=== PATIENT | female | born 1960 | race Caucasian/White ===

== ENCOUNTER 2021-03-07 18:32 | Emergency (ER) | payer BC ==
--- NOTE | 2021-03-07 19:20 | EDM.PDOC ---
ED HPI GENERAL MEDICAL PROBLEM - General Stated Complaint: ANKLE INJURY Time Seen by Provider: 03/07/21 19:01 Source of Information: Reports: Patient History Limitations: Reports: No Limitations - History of Present Illness INITIAL COMMENTS - FREE TEXT/NARRATIVE: HISTORY AND PHYSICAL: History of present illness: Patient is a 60-year-old female who presents to the emergency room with complaints of left ankle pain. She states that she rolled her ankle approximately 1 week ago and since then has had increased pain, swelling and bruising. She states she was "here pressured into coming to get checked out". She has been ambulatory and able to bear weight. Denies any weakness, numbness, tingling, saddle paresthesia. Patient denies any fever, chills, headache, change in vision, syncope or near syncope. Denies any chest pain, back pain, shortness of breath or cough. Denies any GI or symptoms. Review of systems: As per history of present illness and below otherwise all systems reviewed and negative. Past medical history: As per history of present illness and as reviewed below otherwise noncontributory. Surgical history: As per history of present illness and as reviewed below otherwise noncontributory. Social history: See social history for further information Family history: As per history of present illness and as reviewed below otherwise noncontributory. Physical exam: General: Well developed and well nourished. Alert and orientated x 3. Nontoxic in appearance and in no acute distress. Vital signs are stable and have been reviewed by me. Nursing notes were reviewed. HEENT: Atraumatic, normocephalic, pupils equal and reactive bilaterally, negative for conjunctival pallor or scleral icterus, mucous membranes moist, trachea midline. No drooling or trismus noted. No meningeal signs. No hot potato voice noted. Lungs: Clear to auscultation bilaterally. Chest nontender. Normal work of breathing, no accessory muscles used. Heart: S1S2, regular rate and rhythm Skin: Healing bruising to the distal tib-fib and medial and lateral solar rim. Remaining skin is intact, warm, dry. No lesions or rashes noted. Hematologic: No petechiae or purpra. Mucosa appropriate color and normal nail bed color and refill. Extremities: Large body habitus with bilateral +2 nonpitting edema to distal extremity. Medial and lateral malleolus tenderness of the left ankle. She moves all extremities per self without difficulty or deficits, negative for cords or calf pain. Cap refill less than 2 seconds. Strong pedal and pretibial pulses. +CMS. Neurovascular unremarkable. Neuro: Awake, alert, oriented. Cranial nerves II through XII unremarkable. Cerebellum unremarkable. Motor and sensory unremarkable throughout. Exam nonfocal. Psychiatric: Mood and affect are appropriate. Normal thought process. Answering questions appropriately. Please note that the patient was seen and evaluated during the 2019 SARS-CoV-2 novel coronavirus pandemic period. Community viral transmission is ongoing at time of this encounter and the emergency department is operating under pandemic response procedures. Medical Decision Making: X-ray shows a subtle non-displaced oblique fracture of the medial malleolus. Soft tissue swelling at the lateral malleolus could indicate ligamentous injury as there is no definite fracture there. CAM Walker boot and crutches were provided so patient would be nonweightbearing. I have talked with the patient about today's findings, in addition to providing specific details for plan of care. Offered to prescribe pain medication, she declines, stating she would prefer [id number]. Reassessment at the time of disposition demonstrates that the patient is in no acute distress. The patient is stable for discharge, counseling was provided and we discussed in great detail signs and symptoms that would prompt them to return to the Emergency Department. Medication, follow up and supportive care measures were reviewed and discussed. Voices understanding and is agreeable to plan of care. Denies any further questions or concerns at this time. Diagnostics: Ankle Therapeutics: CAM Walker boot and crutches Prescription: Declines Impression: Left ankle fracture Plan: 1. You were evaluated today on an emergent basis. Your x-ray shows a subtle non-displaced oblique fracture of the medial malleolus. Rest, ice, elevate the extremity as able. Please be nonweightbearing and use the crutches until you follow-up with the orthopedic provider. 2. You can alternate Tylenol and ibuprofen as needed for pain and fever management. 3. Please call the orthopedic office on Wednesday to set up a follow-up appointment for re-evaluation and further care/management. 4. If your symptoms should worsen, new symptoms develop or any of the signs and symptoms we discussed should arise please return to the emergency room or call 911 (if needed). Definitive disposition and diagnosis as appropriate pending reevaluation and review of above. left ankle Pain Score (Numeric/FACES): 2 - Related Data Allergies Allergy/AdvReac Type Severity Reaction Status Date / Time No Known Allergies Allergy Verified 03/07/21 18:51 Home Meds: Home Meds . [No Known Home Meds] 03/07/21 [History] Past Medical History - Past Health History Medical/Surgical History: Denies Medical/Surgical History - Infectious Disease History Infectious Disease History: Reports: Chicken Pox, Measles, Mumps Review of Systems - Review of Systems Review Of Systems: Comprehensive ROS is negative, except as noted in HPI. ED EXAM, GENERAL - Physical Exam Exam: See Below (See dictation) Course - Vital Signs Last Recorded V/S: Last Vital Signs Temp 98.1 F 03/07/21 20:10 Pulse 82 03/07/21 20:10 Resp 20 03/07/21 20:10 BP 132/73 03/07/21 20:10 Pulse Ox 97 03/07/21 20:10 - Orders/Labs/Meds Orders: Active Orders 24 hr Category Date Time Status DME for Discharge [COMM] Stat Oth 03/07/21 19:49 Ordered Departure - Departure Time of Disposition: 20:45 Disposition: Home, Self-Care 01 Clinical Impression: Ankle fracture, left Qualifiers: Encounter type: initial encounter Fracture type: closed Qualified Code(s): S82.892A - Other fracture of left lower leg, initial encounter for closed fracture - Discharge Information Instructions: Ankle Fracture, [id number] Referrals: PCP,None [Primary Care Provider] - Additional Instructions: The following information is given to patients seen in the emergency department who are being discharged to home. This information is to outline your options for follow-up care. We provide all patients seen in our emergency department with a follow-up referral. The need for follow-up, as well as the timing and circumstances, are variable depending upon the specifics of your emergency department visit. If you don't have a primary care physician on staff, we will provide you with a referral. We always advise you to contact your personal physician following an emergency department visit to inform them of the circumstance of the visit and for follow-up with them and/or the need for any referrals to a consulting specialist. The emergency department will also refer you to a specialist when appropriate. This referral assures that you have the opportunity for follow-up care with a specialist. All of these measure are taken in an effort to provide you with optimal care, which includes your follow-up. Under all circumstances we always encourage you to contact your private physician who remains a resource for coordinating your care. When calling for follow-up care, please make the office aware that this follow-up is from your recent emergency room visit. If for any reason you are refused follow-up, please contact the [facility] Emergency Department at and asked to speak to the emergency department charge nurse. [facility] - [facility] Professional Building [address] [place] [address], [address] [place] [address] Dr Fajardo, Orthopedist [facility] [address] [place] [address] Orthopedics at [facility] [address] [place] [address] [facility] [address] [place] [address] Thank you for choosing the [facility] emergency department in [place] for your medical needs today. It was a pleasure caring for you. Today you were seen in the emergency department for ankle fracture 1. You were evaluated today on an emergent basis. Your x-ray shows a subtle non-displaced oblique fracture of the medial malleolus. Rest, ice, elevate the extremity as able. Please be nonweightbearing and use the crutches until you follow-up with the orthopedic provider. 2. You can alternate Tylenol and ibuprofen as needed for pain and fever management. 3. Please call the orthopedic office on Wednesday to set up a follow-up appointment for re-evaluation and further care/management. 4. If your symptoms should worsen, new symptoms develop or any of the signs and symptoms we discussed should arise please return to the emergency room or call 911 (if needed). Sepsis Event Note (ED) - Evaluation Sepsis Screening Result: No Definite Risk - Focused Exam Vital Signs: Vital Signs Temp Pulse Resp BP Pulse Ox 03/07/21 20:10 98.1 F 82 20 132/73 97 03/07/21 18:53 97.8 F 79 18 140/69 98 - My Orders Last 24 Hours: My Active Orders 03/07/21 19:49 DME for Discharge [COMM] Stat - Assessment/Plan Last 24 Hours: My Active Orders 03/07/21 19:49 DME for Discharge [COMM] Stat
--- NOTE | 2021-03-07 20:38 | CR ---
Indication: Status post fall. Bruising from ankle to mid brand. Pain on medial and lateral sides. Previous calcaneal surgery in 2006. Technique: Three views of the left ankle. Comparison: None available. Findings: Extensive plate and screw fixation related to previous calcaneal surgery seen. Subtle non-displaced oblique fracture involving the medial malleolus is seen on both the oblique and AP views. The posterior malleolus or distal fibula are not definitively involved on this exam. Severe soft tissue swelling is seen along the lateral malleolus. The talar dome appears unremarkable. Large body habitus. Impression: Subtle non-displaced oblique fracture of the medial malleolus. Soft tissue swelling at the lateral malleolus could indicate ligamentous injury as there is no definite fracture there. Consider imaging of the proximal fibula to exclude a Maisonneuve injury. Dictated by Brennen Alegre MD @ 03/07/2021 8:23:13 PM (Electronically Signed)
== END 2021-03-07 20:56 | disposition home or self-care (01) ==
LOC: MW.ED 18:32
DX: S82.55XA Nondisplaced fracture of medial malleolus of left tibia, initial encounter for closed fracture (principal); X50.1XXA Overexertion from prolonged static or awkward postures, initial encounter
CPT/HCPCS: 73610-26-LT; 73610-LT; 99283-25